=== PATIENT | male | born 1955 | race Caucasian/White ===

== ENCOUNTER → 2018-08-20 | Outpatient (CLI) | payer OTHER ==
[~2018-08-20] MED LIST: ALFU10TA PO; ALLO300T PO; ALPR0.5T6 PO; IBUP200C8 PO; LISI-167 PO; LORA1TAB PO; NAPR220C2 PO; OMEP-110 PO; TIZA4TAB PO; TRAM50TA2 PO
[2018-08-20 16:13] LABS: BASOPHILS # (AUTO) 0.05 x10^3/uL (0-0.1); BASOPHILS % (AUTO) 0 % (0-1); EOSINOPHILS % (AUTO) 0 % (1-7); LYMPHOCYTES # (AUTO) 2.19 x10^3/uL (1-3.4); LYMPHOCYTES % (AUTO) 16 % (22-44); MD NO; MEAN CORPUSCULAR HEMOGLOBIN 32.1 pg (27.5-34.5); MEAN CORPUSCULAR HGB CONC 33.6 g/dL (33.2-36.2); MEAN CORPUSCULAR VOLUME 95.5 fL (81-97); MEAN PLATELET VOLUME 8.6 fL (7.4-10.4); MONOCYTES # (AUTO) 0.71 x10^3/uL (0.2-0.8); MONOCYTES % (AUTO) 5 % (2-9); NEUTROPHILS # (AUTO) 10.89 x10^3/uL (1.8-6.8); NEUTROPHILS % (AUTO) 79 % (42-75); PLATELET COUNT 227 x10^3/uL (130-400); RED CELL DISTRIBUTION WIDTH 14.4 % (9.4-14.8)
[2018-08-20 16:22] LABS: ALANINE AMINOTRANSFERASE 36 U/L (12-78); ALBUMIN 4.6 g/dL (3.4-5.0); ANION GAP 8 mmol/L (5-15); CALCIUM 9.2 mg/dL (8.5-10.1); CHLORIDE 107 mmol/L (98-107); CREATININE 1.04 mg/dL (0.7-1.3)
[2018-08-20 16:25] LABS: ALKALINE PHOSPHATASE 96 U/L (45-117); BILIRUBIN,TOTAL 0.9 mg/dL (0.2-1.0); TOTAL PROTEIN 7.6 g/dL (6.4-8.2)
[2018-08-20 16:27] LABS: CULTURE INDICATED? NO; MICROSCOPIC NOT IND
== END | disposition home or self-care (01) ==
LOC: STAR 14:57
PROVIDERS: ATTEND Orthopaedic Surgery
DX: Z01.818 Encounter for other preprocedural examination (principal); M16.12 Unilateral primary osteoarthritis, left hip
CPT/HCPCS: 36415; 80053; 81003; 85025; 87081; 93005

== ENCOUNTER 2018-08-26 08:02 | Inpatient (IN) | payer OTHER ==
[~2018-08-26] VITALS: Ht 188 cm; Wt 103.1 kg
[2018-08-26] MEDS ORDERED: LACTATED RINGERS 1,000 ML IV SCH (08:50)
[2018-08-26] MEDS ORDERED: LIDOCAINE-MPF 1%, 2ML INFIL ONE (09:00)
[2018-08-26] MEDS ORDERED: DIAZEPAM 5 MG TABLET PO ONE (09:00)
[2018-08-26] MEDS ORDERED: GABAPENTIN 300 MG CAPSULE PO ONE (09:00)
[2018-08-26] MEDS ORDERED: ONDANSETRON ODT 8 MG PO ONE (09:00)
[2018-08-26] MEDS ORDERED: ACETAMINOPHEN 500 MG TABLET PO ONE (09:00)
[2018-08-26 09:49] LABS: ALANINE AMINOTRANSFERASE 31 U/L (12-78); ALBUMIN 4.4 g/dL (3.4-5.0); ANION GAP 7 mmol/L (5-15); CALCIUM 9.4 mg/dL (8.5-10.1); CHLORIDE 110 mmol/L (98-107); CREATININE 0.97 mg/dL (0.7-1.3)
[2018-08-26 09:51] LABS: ALKALINE PHOSPHATASE 88 U/L (45-117); BILIRUBIN,TOTAL 0.7 mg/dL (0.2-1.0); TOTAL PROTEIN 7.4 g/dL (6.4-8.2)
[2018-08-26] MEDS ORDERED: FENTANYL PF 100 MCG/2ML ONE ×3 (10:06→13:13)
[2018-08-26] MEDS ORDERED: MIDAZOLAM 1 MG/ML, 2ML ONE ×2 (10:06→10:56)
[2018-08-26 10:22] LABS: BASOPHILS # (AUTO) 0.05 x10^3/uL (0-0.1); BASOPHILS % (AUTO) 1 % (0-1); EOSINOPHILS # (AUTO) 0.12 x10^3/uL (0-0.4); EOSINOPHILS % (AUTO) 1 % (1-7); LYMPHOCYTES # (AUTO) 1.91 x10^3/uL (1-3.4); LYMPHOCYTES % (AUTO) 20 % (22-44); MD NO; MEAN CORPUSCULAR HEMOGLOBIN 32.7 pg (27.5-34.5); MEAN CORPUSCULAR HGB CONC 33.8 g/dL (33.2-36.2); MEAN CORPUSCULAR VOLUME 96.7 fL (81-97); MEAN PLATELET VOLUME 9.4 fL (7.4-10.4); MONOCYTES # (AUTO) 0.58 x10^3/uL (0.2-0.8); MONOCYTES % (AUTO) 6 % (2-9); NEUTROPHILS # (AUTO) 7.13 x10^3/uL (1.8-6.8); NEUTROPHILS % (AUTO) 73 % (42-75); PLATELET COUNT 213 x10^3/uL (130-400); RED BLOOD COUNT 4.99 x10^6/uL (4.38-5.82); RED CELL DISTRIBUTION WIDTH 14.2 % (9.4-14.8)
[2018-08-26] MEDS ORDERED: TRANEXAMIC ACID 100 MG/ML, 10ML ONE (10:39)
[2018-08-26] MEDS ORDERED: KETOROLAC 60 MG/2 ML ONE (10:39)
[2018-08-26] MEDS ORDERED: SODIUM CHLORIDE 0.9% 100 ML ONE (10:40)
[2018-08-26] MEDS ORDERED: EPINEPHRINE 1 MG/ML, 1ML ONE (10:40)
[2018-08-26] MEDS ORDERED: ROPIvacaine/PF 0.2%, 20 ML ONE (10:40)
[2018-08-26] MEDS ORDERED: FENTANYL PF 250 MCG/5ML ONE (11:59)
[2018-08-26] MEDS ORDERED: PROPOFOL 50 ML ONE (12:23)
[2018-08-26] MEDS ORDERED: LABETALOL 5MG/ML, 20ML IV PRN (12:30)
[2018-08-26] MEDS ORDERED: hydrALAzine 20 MG/ML, 1ML IV PRN (12:30)
[2018-08-26] MEDS ORDERED: PROMETHAZINE 25 MG/ML, 1ML IV PRN (12:30)
[2018-08-26] MEDS ORDERED: SCOPOLAMINE PATCH, 1.5MG PATCH.TD72 TD PRN (12:30)
[2018-08-26] MEDS ORDERED: DIAZEPAM 5 MG/ML, 2ML IVPush PRN (12:30)
[2018-08-26] MEDS ORDERED: MIDAZOLAM 1 MG/ML, 2ML IV PRN (12:30)
[2018-08-26] MEDS ORDERED: HYDROmorphone 2 MG/ML, 1ML IVPush PRN (12:30)
[2018-08-26] MEDS ORDERED: ALBUTEROL/IPRATROPIUM 2.5MG/0.5MG, 3 ML NPPB PRN (12:30)
[2018-08-26] MEDS ORDERED: ONDANSETRON 2MG/ML, 2ML IV PRN ×2 (12:30→13:30)
[2018-08-26] MEDS ORDERED: MEPERIDINE/PF 25MG/0.5ML IVPush PRN (12:30)
[2018-08-26] MEDS ORDERED: OXYcodone 5 MG/5 ML ORAL.SOL UDC PO PRN (12:30)
[2018-08-26] MEDS ORDERED: DEXAMETHASONE 4 MG/ML, 1ML ONE (12:55)
[2018-08-26] MEDS ORDERED: PROPOFOL 10 MG/ML, 20ML ONE (12:55)
[2018-08-26] MEDS ORDERED: CEFAZOLIN 1,000 MG ONE (12:55)
[2018-08-26] MEDS ORDERED: LORazepam 2 MG/ML, 1ML ONE (13:13)
[2018-08-26] MEDS ORDERED: LORAZEPAM 1 MG PO SCH (13:16)
[2018-08-26] MEDS ORDERED: ZOLPIDEM 5MG TABLET PO PRN (13:30)
[2018-08-26] MEDS ORDERED: ONDANSETRON 4 MG TABLET PO PRN (13:30)
[2018-08-26] MEDS ORDERED: BISACODYL 10 MG SUPP PR PRN (13:30)
[2018-08-26] MEDS ORDERED: MAGNESIUM HYDROXIDE 8%, 30ML UDC PO PRN (13:30)
[2018-08-26] MEDS ORDERED: PROMETHAZINE 12.5 MG SUPP PR PRN (13:30)
[2018-08-26] MEDS ORDERED: DIPHENHYDRAMINE 25 MG CAPSULE PO PRN (13:30)
[2018-08-26] MEDS ORDERED: HYDROmorphone 1 MG/ML, 1ML IV PRN (13:30)
[2018-08-26] MEDS ORDERED: SENNA/DOCUSATE TABLET PO PRN (13:30)
[2018-08-26] MEDS ORDERED: PROMETHAZINE 25 MG/ML, 1ML IM PRN (13:30)
[2018-08-26] MEDS ORDERED: ALUMINUM/MAG/SIMETHICONE 30 ML UDC PO PRN (13:30)
[2018-08-26] MEDS: FENTANYL PF 100 MCG/2ML IV PRN ×2 (13:43→14:02)
[2018-08-26] MEDS ORDERED: TRANEXAMIC ACID 1,000 MG in SODIUM CHLORIDE 0.9% 100 ML IVPB ONE (13:45)
[2018-08-26] MEDS: LORazepam 2 MG/ML, 1ML IVPush PRN ×2 (13:45→14:02)
[2018-08-26] MEDS ORDERED: ALBUTEROL/IPRATROPIUM 2.5MG/0.5MG, 3 ML ONE (14:19)
[2018-08-26 15:11] VITALS: BP 144/75
[2018-08-26] MEDS: ACETAMINOPHEN 650 MG/20.3 ML UDC PO SCH ×2 (16:00→22:31)
[2018-08-26] MEDS ORDERED: ACETAMINOPHEN 500 MG TABLET ONE (16:29)
[2018-08-26] MEDS ORDERED: LORazepam 1MG TABLET PO PRN (16:30)
[2018-08-26] MEDS: KETOROLAC 30 MG/1 ML IV SCH ×2 (16:34→22:32)
[2018-08-26] MEDS: TAMSULOSIN 0.4 MG CAP.ER.24H PO SCH (16:34)
[2018-08-26] MEDS: D5%-0.45% NACL 1,000 ML IV SCH (16:35)
[2018-08-26] MEDS: DOCUSATE 100 MG CAPSULE PO SCH (20:08)
[2018-08-26] MEDS: CEFAZOLIN PMX 2GM/50ML 50 ML IVPB SCH (20:08)
[2018-08-26 20:32] VITALS: BP 133/79
[2018-08-27 00:01] VITALS: BP 119/66
[2018-08-27] MEDS: CEFAZOLIN PMX 2GM/50ML 50 ML IVPB SCH (03:40)
[2018-08-27 04:00] VITALS: BP 128/73
[2018-08-27] MEDS: ACETAMINOPHEN 650 MG/20.3 ML UDC PO SCH ×2 (04:33→09:39)
[2018-08-27] MEDS: KETOROLAC 30 MG/1 ML IV SCH ×2 (04:34→09:39)
[2018-08-27] MEDS ORDERED: DEXAMETHASONE 4 MG/ML, 1ML IVPush SCH (06:00)
[2018-08-27] MEDS ORDERED: ASPIRIN 81 MG TABLET EC PO SCH (06:00)
[2018-08-27 06:39] VITALS: BP 149/87
[2018-08-27] MEDS: D5%-0.45% NACL 1,000 ML IV SCH ×2 (08:00)
[2018-08-27] MEDS: DOCUSATE 100 MG CAPSULE PO SCH (08:17)
[2018-08-27] MEDS: TAMSULOSIN 0.4 MG CAP.ER.24H PO SCH (08:17)
[2018-08-27] MEDS ORDERED: ALLOPURINOL 300 MG TABLET PO SCH (09:00)
[2018-08-27] MEDS ORDERED: LISINOPRIL 10 MG TABLET PO SCH (09:00)
[2018-08-27] MEDS ORDERED: MULTIVITAMINS/MINERALS TABLET PO SCH (09:00)
[2018-08-27] MEDS ORDERED: OMEPRAZOLE 20 MG CAPSULE.DR PO SCH (09:00)
[2018-08-27] MEDS ORDERED: TEMPLATE NON-FORMULARY MED. (Alfuzosin Hcl** (Uroxatral**) 10 MG) PO SCH (09:00)
[2018-08-27] MEDS ORDERED: TIZANIDINE 4MG TABLET PO SCH (09:00)
== END 2018-08-27 11:26 | disposition home or self-care (01) | DRG 470 ==
LOC: ORIP 08:02 → 4NOR 14:52 → DCLOUNGE 08-27 11:10
PROVIDERS: ADMIT Orthopaedic Surgery; ATTEND Orthopaedic Surgery
PROC: 0SRB06A Replacement of Left Hip Joint with Oxidized Zirconium on Polyethylene Synthetic Substitute, Uncemented, Open Approach (ICD-10-PCS; principal; 2018-08-26 11:00)
DX: M16.12 Unilateral primary osteoarthritis, left hip (principal); K21.9 Gastro-esophageal reflux disease without esophagitis; I10 Essential (primary) hypertension; F12.90 Cannabis use, unspecified, uncomplicated; M10.9 Gout, unspecified; J44.9 Chronic obstructive pulmonary disease, unspecified; F41.9 Anxiety disorder, unspecified; G89.29 Other chronic pain; G47.33 Obstructive sleep apnea (adult) (pediatric); Z86.718 Personal history of other venous thrombosis and embolism; Z88.5 Allergy status to narcotic agent; Z87.891 Personal history of nicotine dependence
CPT/HCPCS: 36415; 72170; J7620; 71045; 80053; 85014; 85018; 85025; 86850; 86900; 94640; C1713; G0378; J0171; J0690; J1100; J1885; J2250; J2704; J2795; J3010; Q0162; C1776; J2060